=== PATIENT | female | born 1970 | race Caucasian/White ===

== ENCOUNTER 2016-10-04 13:13 | Inpatient (IN) | payer MEDICAID, OTHER ==
[~2016-10-04] VITALS: Ht 152.4 cm; Wt 58.0 kg
[2016-10-04] MEDS ORDERED: CARV6.2579 PO (14:01)
[2016-10-04] MEDS ORDERED: BUME1TAB18 PO (14:01)
[2016-10-04] MEDS ORDERED: CHOL100062 PO (14:02)
--- NOTE | 2016-10-04 14:10 | RADRPT ---
PROCEDURE: XR Chest. CLINICAL INDICATION: Chest pain. TECHNIQUE: Single frontal view. COMPARISON: None. FINDINGS: There is air space and interstitial disease in the mid and lower lung zones consistent with atelecta sis or pulmonary edema. The lungs are otherwise clear. The heart is enlarged. There are small bilateral pleural effusions. There is no pneumothorax. IMPRESSION: 1. Bilateral atelectasis at the lung bases or pulmonary edema. 2. Cardiomegaly. 3. Small bilateral pleural effusions. RPTAT: QQ .Eric Leary MD, MD Date Time Electronically viewed and signed by .Eric Leary MD, on 10/04/2016 14:10 .R/
[2016-10-04 14:26] LABS: ADD SCAN DIFF NO
[2016-10-04 14:33] LABS: BASOPHILS % 0.2 % (0.0-2.0); EOSINOPHILS # 0.1 10^3/ul (0.0-0.5); EOSINOPHILS % 0.8 % (0.0-7.0); HEMATOCRIT 42.8 % (37.0-47.0); HEMOGLOBIN 14.4 g/dl (12.0-16.0); LYMPHOCYTES # 2.1 10^3/ul (0.8-2.9); LYMPHOCYTES % 18.2 % (15.0-51.0); MEAN CORPUSCULAR HEMOGLOBIN 28.7 pg (29.0-33.0); MEAN CORPUSCULAR HGB CONC 33.6 g/dl (32.0-37.0); MEAN CORPUSCULAR VOLUME 85.4 fl (82.0-101.0); MEAN PLATELET VOLUME 10.4 fl (7.4-10.4); MONOCYTE # 0.9 10^3/ul (0.3-0.9); MONOCYTES % 7.4 % (0.0-11.0); NEUTROPHIL # 8.5 10^3/ul (1.6-7.5); NEUTROPHILS % 73.1 % (39.0-77.0); PLATELET COUNT 243 10^3/UL (140-415); RED BLOOD COUNT 5.01 10^6/ul (4.20-5.40); RED CELL DISTRIBUTION WIDTH 13.8 % (11.5-14.5); WHITE BLOOD COUNT 11.6 10^3/ul (4.8-10.8)
[2016-10-04 14:49] LABS: CHLORIDE 101 mmol/L (97-110); INR 1.02; POTASSIUM 4.2 mmol/L (3.5-5.1); PROTIME 13.4 Sec (12.2-14.2); SODIUM 137 mmol/L (135-144)
[2016-10-04 14:52] LABS: ANION GAP 18 (8-16); BLOOD UREA NITROGEN 18 mg/dl (7-20); CARBON DIOXIDE 22 mmol/L (21-31); CREATININE 0.66 mg/dl (0.44-1.00)
[2016-10-04 14:53] LABS: CALCIUM 8.9 mg/dl (8.4-10.2); GLUCOSE 108 mg/dl (70-220)
[2016-10-04 15:09] LABS: TROPONIN-I < 0.012 ng/ml (0.00-0.12)
--- NOTE | 2016-10-04 15:50 | ERA ---
ER Documentation Chief Complaint Date/Time DATE: 10/04/16 TIME: 15:48 Chief Complaint chest pain radiates down both arms for 3 days intermittent sob HPI Patient is a 46-year-old female with cardiomegaly, hypertension, and thyroid disease who presents with chest pain. She also feels shortness of breath. Her chest pain as a pressure-like pain in the midsternal area. It is been there for 2 days. She has had no treatment yet. The shortness of breath comes and goes. She does use Lasix but her symptoms are worsening. Upon review of old medical records this is the patient's first visit to the emergency department. She does not know the name of her primary doctor. ROS All systems reviewed and are negative except as per history of present illness. Medications Home Meds Reported Medications Cholecalciferol* (Vitamin D3*) 1,000 Unit Tablet, 1000 UNIT PO BID, TAB 10/04/16 Carvedilol* (Carvedilol*) 6.25 Mg Tablet, 6.25 MG PO BID, #60 TAB 10/04/16 Bumetanide* (Bumetanide*) 1 Mg Tablet, 1 MG PO BID, TAB 10/04/16 Allergies Allergies: Coded Allergies: No Known Allergy (Unverified , 10/04/16) PMhx/Soc History of Surgery: Yes (angiogram) Anesthesia Reaction: No Hx Neurological Disorder: No Hx Respiratory Disorders: No Hx Cardiac Disorders: Yes (htn) Hx Psychiatric Problems: No Hx Miscellaneous Medical Probl: Yes (hyperthyroid) Hx Alcohol Use: No Hx Substance Use: No Hx Tobacco Use: No Smoking Status: Never smoker FmHx Family History: No coronary disease Physical Exam Vitals Vital Signs Date Time Temp Pulse Resp B/P Pulse Ox O2 Delivery O2 Flow Rate FiO2 10/04/16 13:19 97.8 103 22 96/66 97 Physical Exam Const: Mild distress Head: Atraumatic Eyes: Normal Conjunctiva ENT: Normal External Ears, Nose and Mouth. Neck: Full range of motion..~ No meningismus. Resp: Decreased breath sounds bilaterally Cardio: Regular rate and rhythm, no murmurs Abd: Soft, non tender, non distended. Normal bowel sounds Skin: No petechiae or rashes Back: No midline or flank tenderness Ext: 1+ pitting edema bilaterally Neur: Awake and alert Psych: Normal Mood and Affect Result Diagram: 10/04/16 1415 10/04/16 1415 Results 24 hrs Laboratory Tests Test 10/04/16 14:15 White Blood Count 11.610^3/ul Red Blood Count 5.0110^6/ul Hemoglobin 14.4g/dl Hematocrit 42.8% Mean Corpuscular Volume 85.4fl Mean Corpuscular Hemoglobin 28.7pg Mean Corpuscular Hemoglobin Concent 33.6g/dl Red Cell Distribution Width 13.8% Platelet Count 78902^3/UL Mean Platelet Volume 10.4fl Neutrophils % 73.1% Lymphocytes % 18.2% Monocytes % 7.4% Eosinophils % 0.8% Basophils % 0.2% Nucleated Red Blood Cells % 0.0/100WBC Neutrophils # 8.510^3/ul Lymphocytes # 2.110^3/ul Monocytes # 0.910^3/ul Eosinophils # 0.110^3/ul Basophils # 0.010^3/ul Nucleated Red Blood Cells # 0.010^3/ul Prothrombin Time 13.4Sec Prothrombin Time Ratio 1.0 INR International Normalized Ratio 1.02 Activated Partial Thromboplast Time 25.0Sec Sodium Level 137mmol/L Potassium Level 4.2mmol/L Chloride Level 101mmol/L Carbon Dioxide Level 22mmol/L Anion Gap 18 Blood Urea Nitrogen 18mg/dl Creatinine 0.66mg/dl Glucose Level 108mg/dl Calcium Level 8.9mg/dl Troponin I < 0.012ng/ml Current Medications Medications (Trade) Dose Ordered Sig/Bryan Route PRN Reason Start Time Stop Time Status Last Admin Dose Admin Ondansetron HCl (Zofran Inj) 4 mg ER BRIDGE PRN IV NAUSEA AND/OR VOMITING 10/04/16 16:00 10/05/16 15:59 Acetaminophen (Tylenol Tab) 650 mg ER BRIDGE PRN PO MILD PAIN/FEVER 10/04/16 16:00 10/05/16 15:59 Procedures/MDM Chest x-ray shows cardiomegaly and pulmonary edema per radiology. EKG #1 read by me: Rate/Rhythm: Sinus tachycardia rate of 106 Intervals: Normal Impression: Sinus tachycardia with flipped T waves EKG #2 read by me: Rate/Rhythm: Regular rate and rhythm at a rate of 98 Intervals: Normal Impression: Flipped T-waves Patient is a 46-year-old female who presents with chest pain and shortness of breath. She was found to have pulmonary edema and I also am concerned for acute coronary syndrome. I doubt pneumonia, pneumothorax, pulmonary embolism, or aortic dissection. The patient will be admitted to the care of Dr. Mosley from the panel team as she does not have insurance and has never been admitted before. The patient will be given aspirin and nitroglycerin. Departure Diagnosis: Primary Impression: Chest pain Qualified Code: R07.9 - Chest pain, unspecified type Condition: LION Combs MD October 04, 2016 15:50
[2016-10-04] MEDS ORDERED: ONDANSETRON 4 MG INJ IV PRN ×2 (16:00→16:30)
[2016-10-04] MEDS ORDERED: ACETAMINOPHEN 325 MG TAB PO PRN ×2 (16:00→16:30)
[2016-10-04] MEDS ORDERED: MAGNESIUM HYDROXIDE 30ML CUP PO PRN (16:30)
[2016-10-04] MEDS ORDERED: LORAZEPAM 2 MG INJ IV PRN (16:30)
[2016-10-04] MEDS ORDERED: NACL 0.9% 3 ML SYG IV SCH (16:30)
[2016-10-04] MEDS ORDERED: HYDROCODONE/APAP (5/325) TAB PO PRN (16:30)
[2016-10-04] MEDS ORDERED: BISACODYL (EC) 5 MG TAB PO PRN (16:30)
[2016-10-04 16:31] VITALS: TEMP 97.8
[2016-10-04 17:00] VITALS: BP 106/74; PULSE 74; RESP 18
[2016-10-04 17:11] LABS: ALBUMIN 3.8 g/dl (3.3-4.9); BILIRUBIN,INDIRECT 0.6 mg/dl (0-1.1); BILIRUBIN,TOTAL 0.6 mg/dl (0.2-1.3); TOTAL PROTEIN 6.8 g/dl (6.1-8.1)
--- NOTE | 2016-10-04 17:31 | HP ---
DATE OF ADMISSION: 10/04/2016 TIME OF EVALUATION: 1600 hours. REASON FOR ADMISSION: Chest pain. CONSULTATIONS: Dr. Kodak Cavazos, Cardiology. HISTORY OF PRESENT ILLNESS: This is a 46-year-old female with past medical history of essential hypertension, cardiomyopathy with details unclear and thyroid disease (details unclear) who came to the emergency room with chief complaint of epigastric pain that was radiating to the midsternal area that was pressure-like, that has been going on for the past 2 days that became worse on 10/04/2016. The patient was also complaining of intermittent dyspnea. The patient denied any associated nausea, vomiting or diaphoresis. The patient verbalized that she just got her medications changed with doubling the dose of Coreg from 3.125 to 6.25 mg. The patient also verbalized that her lisinopril has been stopped yesterday and her Lasix was changed to Bumex yesterday. After she started taking the increased dose of Coreg and the Lasix changed to Bumex the patient started feeling these problems. The patient also verbalized feeling dizzy and having problems of transient episodes of blurred vision. The patient denied any fevers, chills, cough, sputum production, dysuria, hematuria , diarrhea, hematochezia or melena. In the emergency room, the patient was noticed to have minimal leukocytosis. The patient was afebrile. The patient's chest x-ray showed bilateral atelectasis at the lung bases or pulmonary edema and cardiomegaly as well as small bilateral pleural effusions. The patient was treated with a single dose of IV Zofran in the emergency room. PAST MEDICAL HISTORY: Cardiomegaly, essential hypertension, "thyroid high." PAST SURGICAL HISTORY: Tubal ligation. HOME MEDICATIONS: 1. Coreg 6.125 mg p.o. b.i.d. 2. Bumex 1 mg p.o. b.i.d. 3. Vitamin D3 1000 units p.o. daily. ALLERGIES: NO KNOWN DRUG ALLERGIES. SOCIAL HISTORY: The patient lives at home with her family. Denies any use of tobacco, alcohol or illicit drugs. REVIEW OF SYSTEMS: A 12-point review of systems was made and review of systems was negative other than what is mentioned in history of present illness. PHYSICAL EXAMINATION: VITAL SIGNS: Temperature 97.8, pulse rate 100, respiratory rate 22, blood pressure 96/66, oxygen saturation 97% on room air. GENERAL: This is a well-nourished female lying in bed in no apparent distress. HEENT: Head normocephalic and atraumatic. Eyes: Anicteric sclerae. Conjunctivae clear. ENT: Nasal septum is midline. Oral mucosa is moist. NECK: Supple. No JVD noticed. RESPIRATORY: Bilaterally diminished breath sounds. Bilateral fine rales heard at the bases. No use of accessory muscles of respiration. CARDIAC: Regular rate and rhythm. S1, S2 heard. ABDOMEN: Soft. Nondistended. Epigastric tenderness and right upper quadrant tenderness. No guarding. GENITOURINARY: Deferred. EXTREMITIES: No cyanosis, no clubbing, no edema. Peripheral pulses palpable. NEUROLOGIC: The patient is awake, alert and oriented. Cranial nerves are grossly intact. LABORATORY AND DIAGNOSTIC DATA: WBC 11.1, hemoglobin 14.4, hematocrit 42.8, platelet count 243. Sodium 137, potassium 4.2, chloride 101, carbon dioxide 20 , anion gap 18, BUN 18, creatinine 0.66, glucose 108, calcium 8.9. Troponin I less than 0.012. 12-lead EKG: Normal sinus rhythm. Chest x-ray: Cardiomegaly. Small bilateral pleural effusions. Bilateral atelectasis at the lung bases or pulmonary edema. IMPRESSION: This is a 46-year-old female with past medical history of cardiomegaly, essential hypertension and thyroid disease who came to the emergency room with chief complaint of chest pain and dyspnea who was found to have evidence of bilateral pleural effusions and possible underlying congestive heart failure exacerbation. She will be admitted here for further treatment and evaluation. ASSESSMENT AND PLAN: 1. Chest pain. To rule out acute coronary syndrome. Serial troponins will be obtained. A 2D echocardiogram will be obtained to evaluate the left ventricular ejection fraction and assess for any wall motion abnormalities. A Cardiology consult will be obtained. 2. Possible underlying congestive heart failure exacerbation, systolic versus diastolic dysfunction. The patient will be adequately diuresed. Cardiology consult will be obtained. A 2D echocardiogram will be obtained. A BNP will be obtained. 3. Bilateral pleural effusions. The patient will be diuresed adequately. The patient will be provided with supplemental oxygen. 4. Thyroid disease. Details unclear. Will obtain a thyroid function panel on this patient to further evaluate this. 5. Epigastric tenderness. Will obtain a gall bladder ultrasound to further evaluate this. LFTs will be obtained. Plan. The patient will be admitted to inpatient telemetry floor. The patient will be started on a low cholesterol diet. The patient will be started on DVT prophylaxis and gastrointestinal prophylaxis. The patient will remain a FULL CODE. Activities will be as tolerated. The rest of the patient's management will be based on the clinical course, the results of diagnostic studies, and inputs from consultants. Based on the patient's clinical presentation, she most probably requires at least 1 midnight's stay for further management and evaluation of her clinical presentation. The case and management of this patient was fully discussed with Dr. Robb. MADISON ROBB MD, AM/CHARO Conf#: [id number] DID#: [id number] MTDD
[2016-10-04 17:37] VITALS: Ht 152.4 cm; Wt 58.0 kg
[2016-10-04 17:47] LABS: ADD UMIC YES; URINE BILIRUBIN (Dip) NEGATIVE (NEGATIVE); URINE BLOOD (Dip) TRACE (NEGATIVE); URINE COLOR LT. YELLOW (YELLOW); URINE GLUCOSE (Dip) NEGATIVE (NEGATIVE); URINE KETONES (Dip) NEGATIVE (NEGATIVE); URINE LEUKOCYTE ESTERASE (Dip) NEGATIVE (NEGATIVE); URINE NITRITE (Dip) NEGATIVE (NEGATIVE); URINE TOTAL PROTEIN (Dip) 1+ (NEGATIVE); URINE UROBILINOGEN (Dip) 0.2 E.U./dL (0.1-1.0)
[2016-10-04] MEDS: FUROSEMIDE 20 MG INJ IV SCH (17:55)
[2016-10-04 17:57] VITALS: PULSE 90
--- NOTE | 2016-10-04 18:17 | RADRPT ---
PROCEDURE: Right upper quadrant abdominal ultrasound. CLINICAL INDICATION: Abdominal pain TECHNIQUE: Major scale and color doppler ultrasound images of the right upper quadrant. COMPARISON: None FINDINGS: Pancreas: Visualized portions appear of normal echogenicity, no focal lesions. Liver: Morphology: Slightly enlarged measuring 17.0 cm. Echogenicity: Normal. Focal lesions: None. Main portal vein: Patent with hepatopetal flow. Biliary System: Gallbladder wall thickening may be secondary to contracture. No gallstones seen. No intrahepatic biliary dilatation. Common bile duct measures 3.3 mm in maximal dimension. Kidneys: Right 10.2 cm in length. Right renal cortical thickness is preserved. Normal echogenicity. No hydronephrosis. No renal calculi. No focal lesions. No free fluid identified. Partially visualized right pleural effusion. IMPRESSION: No gallstones. Normal caliber intrahepatic and extrahepatic biliary system. Thickening of the gallbladder may be secondary to contraction. If clinical concern for acalculous c holecystitis HIDA scan can be obtained for further evaluation. RPTAT: AADD .Jomar Shin MD, MD Date Time Electronically viewed and signed by .Jomar Shin MD, on 10/04/2016 18:16 .B/
[2016-10-04 18:18] LABS: BACTERIA,URINE RARE; SQUAMOUS EPITHELIAL CELL,UR MODERATE; URINE RBCS NONE SEEN /HPF (0)
[2016-10-04 20:11] LABS: CK-MB 0.25 ng/ml (0.0-2.4)
[2016-10-04 20:21] LABS: CREATINE KINASE < 20 IU/L (23-200); TROPONIN-I < 0.012 ng/ml (0.00-0.12)
[2016-10-04 20:28] VITALS: BP 109/68; RESP 19
[2016-10-04 20:30] VITALS: PULSE 90
[2016-10-04] MEDS ORDERED: CHOLECALCIFEROL 1,000 UNIT TAB PO SCH (21:00)
[2016-10-04 23:55] VITALS: BP 101/61; RESP 20
[2016-10-05] VITALS (13 sets, daily range): BP systolic 92–107; BP diastolic 63–79; PULSE 80–116; RESP 16–20
[2016-10-05 02:08] LABS: CREATINE KINASE < 20 IU/L (23-200)
[2016-10-05 02:11] LABS: CK-MB 0.24 ng/ml (0.0-2.4)
[2016-10-05 02:26] LABS: TROPONIN-I < 0.012 ng/ml (0.00-0.12)
[2016-10-05] MEDS: FUROSEMIDE 20 MG INJ IV SCH (06:01)
[2016-10-05 07:27] LABS: ADD SCAN DIFF NO
[2016-10-05 07:34] LABS: BASOPHILS % 0.4 % (0.0-2.0); EOSINOPHILS # 0.1 10^3/ul (0.0-0.5); EOSINOPHILS % 0.6 % (0.0-7.0); HEMATOCRIT 42.2 % (37.0-47.0); HEMOGLOBIN 13.5 g/dl (12.0-16.0); LYMPHOCYTES # 2.3 10^3/ul (0.8-2.9); LYMPHOCYTES % 27.7 % (15.0-51.0); MEAN CORPUSCULAR HEMOGLOBIN 27.6 pg (29.0-33.0); MEAN CORPUSCULAR VOLUME 86.3 fl (82.0-101.0); MONOCYTE # 0.6 10^3/ul (0.3-0.9); MONOCYTES % 7.3 % (0.0-11.0); NEUTROPHIL # 5.4 10^3/ul (1.6-7.5); NEUTROPHILS % 63.6 % (39.0-77.0); PLATELET COUNT 244 10^3/UL (140-415); RED BLOOD COUNT 4.89 10^6/ul (4.20-5.40); RED CELL DISTRIBUTION WIDTH 14.1 % (11.5-14.5); WHITE BLOOD COUNT 8.5 10^3/ul (4.8-10.8)
[2016-10-05 07:54] LABS: MAGNESIUM 1.9 mg/dl (1.7-2.5); PHOSPHORUS 4.7 mg/dl (2.5-4.9)
[2016-10-05 07:56] LABS: ALBUMIN 3.4 g/dl (3.3-4.9); ALBUMIN/GLOBULIN RATIO 1.36; CREATININE 0.54 mg/dl (0.44-1.00); TOTAL PROTEIN 5.9 g/dl (6.1-8.1)
[2016-10-05 07:57] LABS: BILIRUBIN,INDIRECT 0.9 mg/dl (0-1.1); BILIRUBIN,TOTAL 0.9 mg/dl (0.2-1.3); CALCIUM 9.1 mg/dl (8.4-10.2); POTASSIUM 4.4 mmol/L (3.5-5.1)
[2016-10-05 08:03] LABS: TROPONIN-I < 0.012 ng/ml (0.00-0.12)
[2016-10-05 08:08] LABS: CHOL/HDL RATIO 4.3 RATIO
[2016-10-05] MEDS: ASPIRIN 81 MG TAB PO SCH (08:12)
[2016-10-05] MEDS: ENOXAPARIN 40 MG/0.4 ML SYG SC SCH (08:17)
--- NOTE | 2016-10-05 12:45 | RADRPT ---
Echocardiogram Report Patient Name: ALEC BRUSH Gender: Female Date: 1970 Study Date: 05-Oct-2016 Lap Grinder: [facility] Location: 522 Ref. Physician: MADISON GARCIA Quality: Adequate Procedures: Transthoracic echocardiogram with complete 2D, M-Mode, and doppler examination. Indications: Chest Pain. 2D/M Mode Doppler Measurement Value Normal Ranges Measurement Value Normal Ranges LVIDd 2D 5.9 3.5 - 5.6 cm AV Peak Arya 1.1 m/sec LVIDs 2D 5.3 2.1 - 4.1 cm AV Peak PG 4.9 mmHg LVPWd 2D 1.1 0.6 - 1.1 cm LVOT Peak Arya 0.5 m/sec IVSd 2D 0.8 0.6 - 1.1 cm LVOT Peak PG 0.9 mmHg AoR Diam 2D 2.0 2.0 - 3.7 cm TR Peak Arya 3.5 m/sec EDV 2D 170.0 cm3 TR Peak PG 48.1 mmHg ESV 2D 147.9 cm3 RVSP 56.0 mmHg LA Dimen 2D 4.2 2.3 - 4.0 cm Findings Left Ventricle: Normal left ventricular wall thickness. Mild enlargement of left ventricle cavity. Severe left ventricular systolic dysfunction. Ejection fraction is visually estimated at 25 %. Tissue Doppler/Mitral Doppler indices are consistent with pseudonormalization with mildly elevated left atrial pressure (Stage II diastolic dysfunction). Right Ventricle: Normal right ventricular size. Normal right ventricular systolic function. Left Atrium: There is mild enlargement of left atrium. Right Atrium: The right atrium is normal in size. Mitral Valve: Mitral valve leaflets appear mildly thickened. Mild mitral annular calcification. Mild to moderate mitral valve regurgitation. Aortic Valve: Normal appearance of the aortic valve. No significant aortic stenosis or insufficiency. Tricuspid Valve: Normal appearance of the tricuspid valve. Estimated peak PA systolic pressure 56 mmHg. There is mild tricuspid regurgitation. Pulmonic Valve: Normal pulmonic valve appearance. Pericardium: Trivial pericardial effusion. Aorta: Normal aortic root. IVC: Normal size and no respiratory collapse consistent with elevated right atrial pressure. Conclusions 1.Normal left ventricular wall thickness. Mild enlargement of left ventricle cavity. Severe left ventricular systolic dysfunction. Ejection fraction is visually estimated at 25 %. Tissue Doppler/Mitral Doppler indices are consistent with pseudonormalization with mildly elevated left atrial pressure (Stage II diastolic dysfunction). 2.Normal right ventricular size. Normal right ventricular systolic function. 3.There is mild enlargement of left atrium. 4.The right atrium is normal in size. 5.Mild to moderate mitral valve regurgitation. 6.No significant aortic stenosis or insufficiency. 7.Estimated peak PA systolic pressure 56 mmHg. There is mild tricuspid regurgitation. 8.Trivial pericardial effusion. Electronically Signed By: Kodak Cavazos 05-Oct-2016 12:44:12 -0700 Patient Name: ALEC BRUSH Study Date: 05-Oct-2016 [id number]
--- NOTE | 2016-10-05 13:39 | PN ---
Date/Time of Note Date/Time of Note DATE: 10/05/16 TIME: 13:27 Assessment/Plan VTE Prophylaxis VTE Prophylaxis Intervention: LMWH Lines/Catheters IV [facility] Saline Lock Urinary Cath still in place: No Assessment/Plan Chief Complaint/Hosp Course Assessment and plan 1. Chest pain. Serial troponins negative. Patient with ejection fraction noted at 25% with stage II diastolic dysfunction. Occupational Therapy Professor follow. Of note , patient reported that she was recently at [facility] and did have cardiac testing at that time. Will follow up with report. 2. CHF. Continue on diuresis. Optimized on cardiovascular medications. Occupational Therapy Professor follow. 3. Bilateral pleural effusions likely secondary to #2. O2 as needed. Titrate down as tolerated. Continue diuretic 4. Reported abdominal pain. No reports of abdominal pain at this time. Ultrasound of the abdomen showed thickening of gallbladder likely secondary to contraction. No gallstone seen. Will monitor for now. Disposition and plan: Patient with low EF. Follow-up with microbiology analyst recommendations. Will try to obtain reports from [facility]. d/c when cleared by consultants Discussed plan of care with Dr. Salomon Problems: Subjective 24 Hr Interval Summary Free Text/Dictation Reported having some chest discomfort earlier today but none now. No shortness of breath reported. Exam/Review of Systems Vital Signs Vitals Vital Signs Date Time Temp Pulse Resp B/P Pulse Ox O2 Delivery O2 Flow Rate FiO2 10/05/16 12:15 94 10/05/16 11:54 98.0 18 99/63 98 10/04/16 17:00 Room Air Intake and Output 10/04/16 10/04/16 10/05/16 15:00 23:00 07:00 Intake Total 240 ml 160 ml Balance 240 ml 160 ml Exam Constitutional: alert, oriented Psych: nl mood/affect Eyes: nl conjunctiva Neck: non-tender, supple Respiratory: clear to auscultation, normal air movement Cardiovascular: regular rate and rhythm Gastrointestinal: non-tender, soft Musculoskeletal: nl extremities to inspection Extremities: normal pulses Neurological: PALLIATIVE CARE SPECIALIST II-XII intact, nl mental status, nl speech Skin: nl turgor, No rash or lesions Results Result Diagram: 10/05/16 0615 10/05/16 0615 Results 24 hrs Laboratory Tests Test 10/04/16 14:10 10/04/16 14:15 10/04/16 19:30 10/05/16 01:31 Urine Color LT. YELLOW Urine Clarity CLEAR Urine pH 5.5 Urine Specific [place] 1.015 Urine Ketones NEGATIVE Urine Nitrite NEGATIVE Urine Bilirubin NEGATIVE Urine Urobilinogen 0.2 E.U./dL Urine Leukocyte Esterase NEGATIVE Urine Microscopic RBC NONE SEEN Urine Microscopic WBC 0-2 Urine Squamous Epithelial Cells MODERATE Urine Bacteria RARE Urine Hemoglobin TRACE Urine Glucose NEGATIVE Urine Total Protein 1+ H Urine Test NEGATIVE White Blood Count 11.6 H Red Blood Count 5.01 Hemoglobin 14.4 Hematocrit 42.8 Mean Corpuscular Volume 85.4 Mean Corpuscular Hemoglobin 28.7 L Mean Corpuscular Hemoglobin Concent 33.6 Red Cell Distribution Width 13.8 Platelet Count 243 Mean Platelet Volume 10.4 Neutrophils % 73.1 Lymphocytes % 18.2 Monocytes % 7.4 Eosinophils % 0.8 Basophils % 0.2 Nucleated Red Blood Cells % 0.0 Neutrophils # 8.5 H Lymphocytes # 2.1 Monocytes # 0.9 Eosinophils # 0.1 Basophils # 0.0 Nucleated Red Blood Cells # 0.0 Prothrombin Time 13.4 Prothrombin Time Ratio 1.0 INR International Normalized Ratio 1.02 Activated Partial Thromboplast Time 25.0 Sodium Level 137 Potassium Level 4.2 Chloride Level 101 Carbon Dioxide Level 22 Anion Gap 18 H Blood Urea Nitrogen 18 Creatinine 0.66 Glucose Level 108 Hemoglobin A1c 5.9 Calcium Level 8.9 Total Bilirubin 0.6 Direct Bilirubin 0.00 Indirect Bilirubin 0.6 Aspartate Amino Transf (AST/SGOT) 58 H Alanine Aminotransferase (ALT/SGPT) 66 Alkaline Phosphatase 55 Troponin I < 0.012 < 0.012 < 0.012 Total Protein 6.8 Albumin 3.8 Thyroid Stimulating Hormone (TSH) 3.460 Free Thyroxine 1.45 Creatine Kinase < 20 L < 20 L Creatine Kinase Index Creatinine Kinase MB (Mass) 0.25 0.24 B-Type Natriuretic Peptide 4900 H Test 10/05/16 06:15 White Blood Count 8.5 # Red Blood Count 4.89 Hemoglobin 13.5 Hematocrit 42.2 Mean Corpuscular Volume 86.3 Mean Corpuscular Hemoglobin 27.6 L Mean Corpuscular Hemoglobin Concent 32.0 Red Cell Distribution Width 14.1 Platelet Count 244 Mean Platelet Volume 11.0 H Neutrophils % 63.6 Lymphocytes % 27.7 Monocytes % 7.3 Eosinophils % 0.6 Basophils % 0.4 Nucleated Red Blood Cells % 0.0 Neutrophils # 5.4 Lymphocytes # 2.3 Monocytes # 0.6 Eosinophils # 0.1 Basophils # 0.0 Nucleated Red Blood Cells # 0.0 Sodium Level 136 Potassium Level 4.4 Chloride Level 105 Carbon Dioxide Level 21 Anion Gap 14 Blood Urea Nitrogen 16 Creatinine 0.54 Glucose Level 89 Calcium Level 9.1 Phosphorus Level 4.7 Magnesium Level 1.9 Total Bilirubin 0.9 Direct Bilirubin 0.00 Indirect Bilirubin 0.9 Aspartate Amino Transf (AST/SGOT) 34 Alanine Aminotransferase (ALT/SGPT) 58 Alkaline Phosphatase 55 Troponin I < 0.012 Total Protein 5.9 L Albumin 3.4 Globulin 2.50 Albumin/Globulin Ratio 1.36 Triglycerides Level 131 Cholesterol Level 108 LDL Cholesterol, Calculated 57 HDL Cholesterol 25 L Cholesterol/HDL Ratio 4.3 Medications Medications Current Medications Lorazepam (Ativan) 0.5 mg Q6H PRN IV ANXIETY; Start 10/04/16 at 16:30 Ondansetron HCl (Zofran Inj) 4 mg Q6H PRN IV NAUSEA AND/OR VOMITING; Start 10/04 at 16:30 Aspirin (Aspirin) 81 mg DAILY PO Last administered on 10/05/16 08:12; Admin Dose 81 MG; Start 10/05/16 at 09:00 Acetaminophen (Tylenol Tab) 650 mg Q6H PRN PO PAIN LEVEL 1-3 OR FEVER Last administered on 10/05/16 06:08; Admin Dose 650 MG; Start 10/04/16 at 16:30 Acetaminophen/ Hydrocodone Bitart ([place] (5/325)) 1 tab Q6H PRN PO PAIN LEVEL 4 -6; Start 10/04/16 at 16:30 Magnesium Hydroxide (Milk Of Mag) 30 ml DAILY PRN PO CONSTIPATION; Start at 16:30 Bisacodyl (Dulcolax) 5 mg DAILY PRN PO CONSTIPATION; Start 10/04/16 at 16:30 Enoxaparin Sodium (Lovenox) 40 mg DAILY SC Last administered on 10/05/16 08:17 ; Admin Dose 40 MG; Start 10/05/16 at 09:00 Carvedilol (Coreg) 3.125 mg BID PO ; Start 10/04/16 at 21:00 JOSE GONZALEZ October 05, 2016 13:38
--- NOTE | 2016-10-05 15:23 | CONS ---
Date/Time of Note Date/Time of Note DATE: 10/05/16 TIME: 15:18 Assessment/Plan Assessment/Plan Additional Assessment/Plan Mild acute decompensated systolic congestive heart failure Severe cardiomyopathy with ejection fraction less than 25% Abdominal and chest pain -Serial cardiac enzymes remain negative, echocardiogram as mentioned above with ejection fraction less than 25%. As per patient, she was told her recent heart function was 10-15%. Based on history, it appears patient had recent cardiac catheterization and myocardial biopsy at [facility] and is undergoing workup. Would restart VAMSHI inhibitor as blood pressure permits, would change diuretics to p.o. Maintain potassium above 4.0 and magnesium above 2.0. Would evaluate other noncardiac causes of patient's abdominal and chest pain. Otherwise no further inpatient cardiac workup needed at the current time. Patient was recommended to follow-up with the heart failure/cardiac transplant team at [facility] upon discharge. Consultation Date/Type/Reason Admit Date/Time October 04, 2016 at 15:36 Type of Consultation: cv Reason for Consultation Congestive heart failure Hx of Present Illness This is a 46-year-old female with past medical history of congestive heart failure who presented to the emergency room secondary to symptoms of abdominal pain, nausea, chest pain. Symptoms began approximate 1-2 days ago. Symptoms began after having her recent cardiac medications adjusted. Chest pain usually starts in the abdomen and radiates to the chest. Pain is usually sharp in nature lasting a few seconds and resolves. Pain is not different with exertion. She does have intermittent shortness of breath going on over the past few months. She was resumed diagnosed with congestive heart failure. She had a recent workup done at [facility] and appears as the patient describes, she had a cardiac catheterization done as well as myocardial biopsy. She had a severe "flu"and afterwards developed cardiomyopathy. She currently feels better, denies shortness of breath, dizziness or lightheadedness. 12 point review of systems was performed with all pertinent positives and negatives mentioned above and all else is negative Psychological: nl mood/affect Past Medical History Medical History: congestive heart failure Family History Significant Family History: no pertinent family hx Social History Alcohol Use: none Smoking Status: Never smoker Drug Use: none Exam/Review of Systems Vital Signs Vitals Vital Signs Date Time Temp Pulse Resp B/P Pulse Ox O2 Delivery O2 Flow Rate FiO2 10/05/16 12:15 94 10/05/16 11:54 98.0 18 99/63 98 10/04/16 17:00 Room Air Intake and Output 10/04/16 10/04/16 10/05/16 15:00 23:00 07:00 Intake Total 240 ml 160 ml Balance 240 ml 160 ml Exam No apparent distress Constitutional: alert, oriented Head: normocephalic Neck: supple Respiratory: other (Coarse breath sounds bilaterally, no wheezing) Cardiovascular: other (S1-S2 heard), regular rate and rhythm, systolic murmur Gastrointestinal: bowel sounds, non-tender, other (No guarding), soft Extremities: other (No edema or cyanosis) Results Result Diagram: 10/05/1615 10/05/16 0615 Results 24 hrs Laboratory Tests Test 10/04/16 19:30 10/05/16 01:31 10/05/16 06:15 Creatine Kinase < 20 L < 20 L Creatine Kinase Index Creatinine Kinase MB (Mass) 0.25 0.24 Troponin I < 0.012 < 0.012 < 0.012 B-Type Natriuretic Peptide 4900 H White Blood Count 8.5 # Red Blood Count 4.89 Hemoglobin 13.5 Hematocrit 42.2 Mean Corpuscular Volume 86.3 Mean Corpuscular Hemoglobin 27.6 L Mean Corpuscular Hemoglobin Concent 32.0 Red Cell Distribution Width 14.1 Platelet Count 244 Mean Platelet Volume 11.0 H Neutrophils % 63.6 Lymphocytes % 27.7 Monocytes % 7.3 Eosinophils % 0.6 Basophils % 0.4 Nucleated Red Blood Cells % 0.0 Neutrophils # 5.4 Lymphocytes # 2.3 Monocytes # 0.6 Eosinophils # 0.1 Basophils # 0.0 Nucleated Red Blood Cells # 0.0 Sodium Level 136 Potassium Level 4.4 Chloride Level 105 Carbon Dioxide Level 21 Anion Gap 14 Blood Urea Nitrogen 16 Creatinine 0.54 Glucose Level 89 Calcium Level 9.1 Phosphorus Level 4.7 Magnesium Level 1.9 Total Bilirubin 0.9 Direct Bilirubin 0.00 Indirect Bilirubin 0.9 Aspartate Amino Transf (AST/SGOT) 34 Alanine Aminotransferase (ALT/SGPT) 58 Alkaline Phosphatase 55 Total Protein 5.9 L Albumin 3.4 Globulin 2.50 Albumin/Globulin Ratio 1.36 Triglycerides Level 131 Cholesterol Level 108 LDL Cholesterol, Calculated 57 HDL Cholesterol 25 L Cholesterol/HDL Ratio 4.3 Medications Medications Current Medications Lorazepam (Ativan) 0.5 mg Q6H PRN IV ANXIETY; Start 10/04/16 at 16:30 Ondansetron HCl (Zofran Inj) 4 mg Q6H PRN IV NAUSEA AND/OR VOMITING; Start 10/04 at 16:30 Aspirin (Aspirin) 81 mg DAILY PO Last administered on 10/05/16 08:12; Admin Dose 81 MG; Start 10/05/16 at 09:00 Acetaminophen (Tylenol Tab) 650 mg Q6H PRN PO PAIN LEVEL 1-3 OR FEVER Last administered on 10/05/16 06:08; Admin Dose 650 MG; Start 10/04/16 at 16:30 Acetaminophen/ Hydrocodone Bitart ([place] (5/325)) 1 tab Q6H PRN PO PAIN LEVEL 4 -6; Start 10/04/16 at 16:30 Magnesium Hydroxide (Milk Of Mag) 30 ml DAILY PRN PO CONSTIPATION; Start at 16:30 Bisacodyl (Dulcolax) 5 mg DAILY PRN PO CONSTIPATION; Start 10/04/16 at 16:30 Enoxaparin Sodium (Lovenox) 40 mg DAILY SC Last administered on 10/05/16 08:17 ; Admin Dose 40 MG; Start 10/05/16 at 09:00 Carvedilol (Coreg) 3.125 mg BID PO ; Start 10/04/16 at 21:00 Procedures Procedures ECG demonstrates sinus rhythm at 90 bpm, QRS 86 ms, nonspecific STT wave abnormality Kodak Cavazos DO October 05, 2016 15:23
[2016-10-05] MEDS ORDERED: MAGNESIUM SULFATE 2 GM/50 ML 50 ML IVPB ONE (15:30)
[2016-10-05] MEDS: FUROSEMIDE 20 MG TAB PO SCH (15:41)
[2016-10-06] VITALS (14 sets, daily range): BP systolic 82–108; BP diastolic 57–74; PULSE 85–96; RESP 16–21
[2016-10-06 06:27] LABS: ADD SCAN DIFF NO
[2016-10-06 06:34] LABS: BASOPHILS % 0.5 % (0.0-2.0); EOSINOPHILS # 0.1 10^3/ul (0.0-0.5); EOSINOPHILS % 1.1 % (0.0-7.0); HEMATOCRIT 40.1 % (37.0-47.0); HEMOGLOBIN 13.3 g/dl (12.0-16.0); LYMPHOCYTES # 2.1 10^3/ul (0.8-2.9); LYMPHOCYTES % 23.5 % (15.0-51.0); MEAN CORPUSCULAR HEMOGLOBIN 28.5 pg (29.0-33.0); MEAN CORPUSCULAR HGB CONC 33.2 g/dl (32.0-37.0); MEAN CORPUSCULAR VOLUME 85.9 fl (82.0-101.0); MEAN PLATELET VOLUME 10.4 fl (7.4-10.4); MONOCYTE # 0.6 10^3/ul (0.3-0.9); MONOCYTES % 6.7 % (0.0-11.0); NEUTROPHILS % 67.9 % (39.0-77.0); PLATELET COUNT 225 10^3/UL (140-415); RED BLOOD COUNT 4.67 10^6/ul (4.20-5.40); WHITE BLOOD COUNT 8.8 10^3/ul (4.8-10.8)
[2016-10-06 07:07] LABS: POTASSIUM 3.2 mmol/L (3.5-5.1)
[2016-10-06 07:09] LABS: CREATININE 0.56 mg/dl (0.44-1.00)
[2016-10-06 07:10] LABS: CALCIUM 8.5 mg/dl (8.4-10.2)
[2016-10-06] MEDS: ASPIRIN 81 MG TAB PO SCH (08:22)
[2016-10-06] MEDS: FUROSEMIDE 20 MG TAB PO SCH (08:24)
[2016-10-06] MEDS: ENOXAPARIN 40 MG/0.4 ML SYG SC SCH (08:28)
[2016-10-06] MEDS ORDERED: LISINOPRIL 5 MG TAB PO SCH (09:00)
[2016-10-06] MEDS ORDERED: ASPI81TA3 PO (12:44)
[2016-10-06] MEDS ORDERED: CARV3.1260 PO (12:44)
[2016-10-06] MEDS ORDERED: POTASSIUM CHLORIDE (SR) 20 MEQ TAB PO STA (12:48)
[2016-10-06] MEDS ORDERED: LAS20 PO (12:49)
[2016-10-06] MEDS ORDERED: POTA8CAP PO (12:49)
--- NOTE | 2016-10-06 12:50 | PDOCDIS ---
Discharge Instructions DIAGNOSIS Discharge Diagnosis: 1. Atypical chest pain 2. Cardiomyopathy/CHF 3. GERD CONDITION Patient Condition: Stable HOME CARE INSTRUCTIONS: Diet Instructions: Reduced SodiumSpecial Diet: Cardiac FOLLOW UP/APPOINTMENTS Appointments 1. Follow-up at [facility] for further management and care 2. Follow-up with her garbage collector in 1 week 2. Follow-up with primary care provider in 1-2 weeks JOSE GONZALEZ October 06, 2016 12:50
--- NOTE | 2016-10-06 14:55 | CONS ---
Date/Time of Note Date/Time of Note DATE: 10/06/16 TIME: 14:53 Assessment/Plan Assessment/Plan Additional Assessment/Plan Mild acute decompensated systolic congestive heart failure Severe cardiomyopathy with ejection fraction less than 25% Abdominal and chest pain -Patient feeling better, continue beta-jael, low-dose diuretic as blood pressure and renal function permits. Given borderline low blood pressure, would hold off on VAMSHI inhibitor at the current time. Supplement potassium to maintain above 4.0 and magnesium above 2.0. DC planning Consultation Date/Type/Reason Admit Date/Time October 04, 2016 at 15:36 Initial Consult Date Type of Consultation: cv 24 HR Interval Summary Free Text/Dictation Denies chest pain, shortness of breath. Ambulating today without dizziness or shortness of breath. Overall feeling better Exam/Review of Systems Vital Signs Vitals Vital Signs Date Time Temp Pulse Resp B/P Pulse Ox O2 Delivery O2 Flow Rate FiO2 10/06/16 13:50 96 10/06/16 12:46 92/71 10/06/16 11:26 97.8 20 99 10/04/16 17:00 Room Air Intake and Output 10/05/16 10/05/16 10/06/16 15:00 23:00 07:00 Intake Total 800 ml 120 ml Balance 800 ml 120 ml Exam No apparent distress Constitutional: alert, oriented Head: normocephalic Neck: supple Respiratory: other (Coarse breath sounds bilaterally, no wheezing) Cardiovascular: other (S1-S2 heard), regular rate and rhythm, systolic murmur Gastrointestinal: bowel sounds, non-tender, soft Extremities: other (No edema) Results Result Diagram: 10/06/16 0555 10/06/16 0555 Results 24 hrs Laboratory Tests Test 10/06/16 05:55 White Blood Count 8.8 Red Blood Count 4.67 Hemoglobin 13.3 Hematocrit 40.1 Mean Corpuscular Volume 85.9 Mean Corpuscular Hemoglobin 28.5 L Mean Corpuscular Hemoglobin Concent 33.2 Red Cell Distribution Width 14.0 Platelet Count 225 Mean Platelet Volume 10.4 Neutrophils % 67.9 Lymphocytes % 23.5 Monocytes % 6.7 Eosinophils % 1.1 Basophils % 0.5 Nucleated Red Blood Cells % 0.0 Neutrophils # 6.0 Lymphocytes # 2.1 Monocytes # 0.6 Eosinophils # 0.1 Basophils # 0.0 Nucleated Red Blood Cells # 0.0 Sodium Level 139 Potassium Level 3.2 L Chloride Level 103 Carbon Dioxide Level 25 Anion Gap 14 Blood Urea Nitrogen 21 H Creatinine 0.56 Glucose Level 104 Calcium Level 8.5 Medications Medications Current Medications Lorazepam (Ativan) 0.5 mg Q6H PRN IV ANXIETY; Start 10/04/16 at 16:30 Ondansetron HCl (Zofran Inj) 4 mg Q6H PRN IV NAUSEA AND/OR VOMITING; Start 10/04 at 16:30 Aspirin (Aspirin) 81 mg DAILY PO Last administered on 10/06/16 08:22; Admin Dose 81 MG; Start 10/05/16 at 09:00 Acetaminophen (Tylenol Tab) 650 mg Q6H PRN PO PAIN LEVEL 1-3 OR FEVER Last administered on 10/05/16 06:08; Admin Dose 650 MG; Start 10/04/16 at 16:30 Acetaminophen/ Hydrocodone Bitart ([place] (5/325)) 1 tab Q6H PRN PO PAIN LEVEL 4 -6; Start 10/04/16 at 16:30 Magnesium Hydroxide (Milk Of Mag) 30 ml DAILY PRN PO CONSTIPATION; Start at 16:30 Bisacodyl (Dulcolax) 5 mg DAILY PRN PO CONSTIPATION; Start 10/04/16 at 16:30 Enoxaparin Sodium (Lovenox) 40 mg DAILY SC Last administered on 10/06/16 08:28 ; Admin Dose 40 MG; Start 10/05/16 at 09:00 Carvedilol (Coreg) 3.125 mg BID PO ; Start 10/04/16 at 21:00 Furosemide (Lasix) 20 mg DAILY PO Last administered on 10/06/16 08:24; Admin Dose 20 MG; Start 10/05/16 at 15:30 Lisinopril (Zestril) 2.5 mg DAILY PO Last administered on 10/06/16 08:25; Admin Dose 2.5 MG; Start 10/06/16 at 09:00 Pantoprazole (Protonix Tab) 40 mg DAILY@06 PO ; Start 10/07/16 at 06:00 oKdak Cavazos DO October 06, 2016 14:55
[2016-10-06] MEDS ORDERED: MAGNESIUM SULFATE 2 GM/50 ML 50 ML IVPB ONE (15:00)
--- NOTE | 2016-10-06 21:36 | DS ---
Date/Time of Note Date/Time of Note DATE: 10/06/16 TIME: 21:08 Discharge Summary Admission/Discharge Info Admit Date/Time October 04, 2016 at 15:36 Discharge Date/Time Final Diagnosis 1. Chest pain. 2. CHF. 3. Bilateral pleural effusions likely secondary to #2. 4. Reported abdominal pain. Patient Condition: Stable Consults 1. Dr. Kodak Cavazos Hospital Course This is a 46 year old female with history of hypertension, cardiomyopathy, reported thyroid disease who came to [facility] due to reports of epigastri pain that radiated to her midsternal area that was reportedly pressure like in nature. Patient reported this had gone one for 2 days duration and started on October 04, 2016. Patient also initially reported haviing some intermitted dyspnea. Patient stated she also recently had her coreg dose doubled from 3.126 to 6.25. Patient also reported that her lisinopril had been discontinued and was put on bumex prior to her admission. Patient reported that after her coreg dose had changed and lasix was switched to bumex that she started to experience these symptoms. She denied any other associated symptoms. Chest imaging showed her to have some bilateral lung lobe atelectasis and gallbladder imaging showed no gallstones and gallbladder wall thickening likely secondary to contraction. Patient did report that her pain in abdomen was more epigastric and would radiate midline her chest and sometimes her throat. Likely pain was GERD. patient was educated about dietary habits and otc medications that would help with this issue. Patient did report resolution of her abdomen pain on the day of her discharge. As for patient's chest discomfort, patient did have echocardiogram that did show her to have cardiomyopathy with EF: 25%. We did get cardiology consultation and patient did have her cardiac meds adjusted. Patient did report that she did follow up with production sorter at [facility]. Patient was educate to follow up with her production sorter upon outpatient for further management and care of her cardiac issues. Patient did improve during her stay. The plan of care was discussed with the patient and patient did verbalize her understanding. On the day of discharge, patient was in stable condition. Discussed plan of care with Discharge process time: 40 minutes Home Meds Active Scripts Potassium Chloride* (Potassium Chloride*) 8 Meq Capsule.er, 8 MEQ PO DAILY for 30 Days, CAP Prov:JOSE GONZALEZ 10/06/16 Furosemide (Lasix) 20 Mg Tab, 20 MG PO DAILY for 30 Days, TAB Prov:REGIDORJOSE 10/06/16 Aspirin (Aspirin) 81 Mg Chew, 81 MG PO DAILY for 30 Days, TAB Prov:REGIDORJOSE 10/06/16 Carvedilol* (Carvedilol*) 3.125 Mg Tablet, 3.125 MG PO BID for 30 Days, TAB Prov:FATMATAEduardoJOSE 10/06/16 Reported Medications Cholecalciferol* (Vitamin D3*) 1,000 Unit Tablet, 1000 UNIT PO BID, TAB 10/04/16 Discontinued Reported Medications Carvedilol* (Carvedilol*) 6.25 Mg Tablet, 6.25 MG PO BID, #60 TAB 10/04/16 Bumetanide* (Bumetanide*) 1 Mg Tablet, 1 MG PO BID, TAB 10/04/16 Follow-up Plan CONDITION Patient Condition: Stable HOME CARE INSTRUCTIONS: Diet Instructions: Reduced SodiumSpecial Diet: Cardiac FOLLOW UP/APPOINTMENTS Appointments 1. Follow-up at [facility] for further management and care 2. Follow-up with her production sorter in 1 week 2. Follow-up with primary care provider in 1-2 weeks Pending Labs Laboratory Tests Test 10/06/16 05:55 White Blood Count 8.810^3/ul (4.8-10.8) Red Blood Count 4.6710^6/ul (4.20-5.40) Hemoglobin 13.3g/dl (12.0-16.0) Hematocrit 40.1% (37.0-47.0) Mean Corpuscular Volume 85.9fl (82.0-101.0) Mean Corpuscular Hemoglobin 28.5pg (29.0-33.0) Mean Corpuscular Hemoglobin Concent 33.2g/dl (32.0-37.0) Red Cell Distribution Width 14.0% (11.5-14.5) Platelet Count 34893^3/UL (140-415) Mean Platelet Volume 10.4fl (7.4-10.4) Neutrophils % 67.9% (39.0-77.0) Lymphocytes % 23.5% (15.0-51.0) Monocytes % 6.7% (0.0-11.0) Eosinophils % 1.1% (0.0-7.0) Basophils % 0.5% (0.0-2.0) Nucleated Red Blood Cells % 0.0/100WBC (0.0-0.0) Neutrophils # 6.010^3/ul (1.6-7.5) Lymphocytes # 2.110^3/ul (0.8-2.9) Monocytes # 0.610^3/ul (0.3-0.9) Eosinophils # 0.110^3/ul (0.0-0.5) Basophils # 0.010^3/ul (0.0-0.1) Nucleated Red Blood Cells # 0.010^3/ul (0.0-0.0) Sodium Level 139mmol/L (135-144) Potassium Level 3.2mmol/L (3.5-5.1) Chloride Level 103mmol/L (97-110) Carbon Dioxide Level 25mmol/L (21-31) Anion Gap 14 (8-16) Blood Urea Nitrogen 21mg/dl (7-20) Creatinine 0.56mg/dl (0.44-1.00) Glucose Level 104mg/dl (70-220) Calcium Level 8.5mg/dl (8.4-10.2) JOSE GONZALEZ October 06, 2016 21:30
[2016-10-07] MEDS ORDERED: PANTOPRAZOLE (EC) 40 MG TAB PO SCH (06:00)
== END 2016-10-06 22:26 | disposition home or self-care (01) | DRG 292 ==
LOC: E/R 13:13 → TEL 15:36
PROVIDERS: ADMIT Family Medicine; ATTEND Family Medicine
DX: I50.23 Acute on chronic systolic (congestive) heart failure (principal); I42.9 Cardiomyopathy, unspecified; E07.9 Disorder of thyroid, unspecified; R10.13 Epigastric pain; R06.00 Dyspnea, unspecified
CPT/HCPCS: 36415; 71010; 76705; 80048; 80053; 80061; 80076; 81001; 81003; 82550; 82553; 83036; 83735; 83880; 84100; 84439; 84443; 84484; 84703; 85025; 85610; 85730; 87081; 93005; 93306; J1940; J1650; J3475